=== PATIENT | male | born 1985 | race Caucasian/White ===

== ENCOUNTER 2020-05-01 12:49 | Emergency (ER) | payer SELFPAY ==
[2020-05-01 12:56] VITALS: BP 160/90
--- NOTE | 2020-05-01 13:27 | ED Physician Documentation ---
History of Present Illness - Stated complaint Stated Complaint: MOUTH PX - Chief complaint Chief Complaint: Heent - History obtained from History obtained from: Patient - Additonal information Additional information: 34-year-old male presents to the emergency department for 1 week of dental pain. He is grossly abnormal dentition on his upper mouth. Stated that the pain began about 1 week ago and has gotten progressively worse. Not alleviated with Tylenol or ibuprofen. He did have facial swelling for 2 days but that has since resolved. No fevers. No trismus. Normal phonation and able to swallow normally. He is trying to get into a dentist. 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 He is hoping for a bridging prescription of antibiotics until he can be seen by dental. Review of Systems Constitutional: denies: Fever, Chills Eyes: reports: Reviewed and negative Ears: reports: Reviewed and negative Nose: reports: Reviewed and negative Throat: reports: Dental pain / toothache, Oral lesions / sores. denies: Sore throat, Swollen tonsils, Swallowed foreign body Cardiac: reports: Reviewed and negative Respiratory: reports: Reviewed and negative GI: reports: Reviewed and negative : reports: Reviewed and negative PD PAST MEDICAL HISTORY - Past Medical History Past Medical History: No - Past Surgical History Past Surgical History: No - Present Medications Home Medications: Ambulatory Orders Medication Instructions Recorded Confirmed Amox/Clav 875/125 [Augmentin] 1 each PO Q12H #20 tablet 05/01/20 - Allergies Allergies/Adverse Reactions: Allergies Allergy/AdvReac Type Severity Reaction Status Date / Time No Known Drug Allergies Allergy Verified 05/01/20 12:52 - Social History Does the pt smoke?: Yes Smoking Status: Current every day smoker Does the pt drink ETOH?: Yes Substance Use and Type: Marijuana PD ED PE EXPANDED - General General: Alert, No acute distress, Well developed/nourished - HEENT HEENT: PERRL, EOMI, Pharynx normal, Dental decay (Grossly abnormal teeth in the upper mouth. All are missing and rotted to the gumline. Generalized gumline swelling without fluctuance or obvious drainage. No trismus. Normal swallow and phonation.). No: Pharyngeal erythema, Swollen tonsils, Tonsillar exudate Results - Vitals Vitals: Vital Signs - 24 hr 05/01/20 12:53 Temperature 36.5 C Heart Rate 52 L Respiratory 14 Rate Blood Pressure 160/90 H O2 Saturation 100 Oxygen O2 Source Room air PD MEDICAL DECISION MAKING - ED course Complexity details: re-evaluated patient, considered differential, d/w patient ED course: 34-year-old male here for dental pain. He has a very poor dentition in the upper mouth with all of the teeth missing are rotted to the gumline. He has generalized gumline erythema but no obvious fluctuance or drainage. No trismus. He has normal phonation. He is attempting to get into a dentist for long-term repair and evaluation of his mouth. I will start him on a course of Augmentin. He is attempting to see [facility] clinics in [place] but I also gave him [facility] as they do have dental walk-in clinic availability. Emergent return precautions discussed for fevers, facial swelling trismus dysphonia inability to tolerate oral secretions Departure - Departure Disposition: 01 Home, Self Care Clinical Impression: Dental decay, Dentalgia Condition: Stable Record reviewed to determine appropriate education?: Yes Instructions: ED [facility] Prescriptions: Amox/Clav 875/125 [Augmentin] 1 each PO Q12H #20 tablet Comments: Reji I am prescribing you a 10-day course of Augmentin for your dental decay. In the long-term this will be a recurring problem until you are able to be seen by a dentist and have the teeth properly removed and or repaired. I would like you to gargle with warm salt water 3 times a day. This will help alleviate inflammation and infection. Fill the prescription for the antibiotics and begin taking as directed. If at any point you develop fevers, have facial swelling, cannot open your jaw fully, cannot swallow normally or have a hoarse voice please return to the ER for a second look [facility] dental clinics in [place] may be able to see you. However [facility] does have dental clinics that do have walk-in availability. I recommend that you try and see them as well
[2020-05-01] MEDS ORDERED: AMOX/CLAV 875 MG/125 MG TABLET PO STA (13:30)
== END 2020-05-01 13:40 | disposition home or self-care (01) ==
LOC: ED 12:49
DX: K02.9 Dental caries, unspecified (principal); K08.89 Other specified disorders of teeth and supporting structures; F17.200 Nicotine dependence, unspecified, uncomplicated
CPT/HCPCS: 99282; 99283; A9270

== ENCOUNTER 2022-03-20 13:14 | Emergency (ER) | payer MEDICAID ==
[2022-03-20] MEDS ORDERED: ONDANSETRON 4 MG/2 ML VIAL IVP STA (13:31)
[2022-03-20] MEDS ORDERED: HYDROmorphone 1 MG/ML CARPUJECT IVP STA ×2 (13:31→15:10)
--- NOTE | 2022-03-20 13:33 | ED Physician Documentation ---
History of Present Illness - Stated complaint Stated Complaint: FALL,ELBOW INJ - Chief complaint Chief Complaint: Trauma Ext - History obtained from History obtained from: Patient - History of Present Illness Timing: Today Pain level max: 10 Pain level now: 10 - Additonal information Additional information: Patient is a 36-year-old male who presents to the emergency department after falling out of a tree today. He landed on the left elbow causing left elbow pain. He is unsure if he struck his head. States most of his pain is in his left elbow. Worse with movement, nothing makes it better. Patient denies any numbness. Has mild tingling of the left hand. The pain in the elbow is worse with movement, better with rest. Patient is right-handed no loss of consciousness. No vomiting. Does not take any blood thinners. Patient was activated as a modified trauma. Review of Systems Ten Systems: 10 systems reviewed and negative Constitutional: denies: Fever, Chills Ears: denies: Ear pain Nose: denies: Rhinorrhea / runny nose, Congestion Respiratory: denies: Dyspnea, Cough GI: denies: Nausea, Vomiting, Diarrhea Skin: denies: Rash Musculoskeletal: denies: Back pain Neurologic: denies: Focal weakness, Numbness, Head injury PD PAST MEDICAL HISTORY - Past Medical History Past Medical History: No - Past Surgical History Past Surgical History: No - Present Medications Home Medications: Ambulatory Orders Medication Instructions Recorded Confirmed Amox/Clav 875/125 [Augmentin] 1 each PO Q12H #20 tablet 05/01/20 Oxycodone HCl/Acetaminophen 1 - 2 each PO Q6H PRN #20 tablet 03/20/22 [Percocet 5-325 mg Tablet] MDD 6 tabs - Allergies Allergies/Adverse Reactions: Allergies Allergy/AdvReac Type Severity Reaction Status Date / Time No Known Drug Allergies Allergy Verified 03/20/22 13:26 - Social History Does the pt smoke?: Yes Smoking Status: Current every day smoker Does the pt drink ETOH?: Yes - Family History Family history: reports: Non contributory PD ED PE NORMAL - Vitals Vital signs reviewed: Yes - General General: Alert and oriented X 3, No acute distress, Well developed/nourished - HEENT HEENT: Atraumatic, PERRL, EOMI, Ears normal, Moist mucous membranes - Neck Neck: No bony TTP, Other (Placed in a c-collar upon arrival) - Cardiac Cardiac: RRR, Strong equal pulses - Respiratory Respiratory: No respiratory distress, Clear bilaterally - Abdomen Abdomen: Soft, Non tender, Non distended - Derm Derm: Warm and dry - Extremities Extremities: Other (Deformity noted to the left elbow. Limited range of motion secondary to pain. No tenderness over the wrist, forearm, humerus or glenohumeral joint. Neurovascular intact.) - Neuro Neuro: Alert and oriented X 3, iso coordinator 2-12 intact, No motor deficit, No sensory deficit, Normal speech Eye Opening: Spontaneous Motor: Obeys Commands Verbal: Oriented GCS Score: 15 - Psych Psych: Normal mood, Normal affect Results - Vitals Vitals: Vital Signs - 24 hr 03/20/22 03/20/22 03/20/22 13:23 14:33 15:41 Temperature 36.5 C Heart Rate 65 88 80 Respiratory 20 14 15 Rate Blood Pressure 151/106 H 160/78 H O2 Saturation 100 100 03/20/22 03/20/22 15:45 16:02 Temperature Heart Rate 87 69 Respiratory 18 18 Rate Blood Pressure 180/104 H 167/109 H O2 Saturation 100 98 Oxygen O2 Source Room air - Labs Labs: Laboratory Tests 03/20/22 03/20/22 13:30 13:30 WBC 9.4 RBC 5.17 Hgb 15.3 Hct 46.3 MCV 89.6 MCH 29.6 MCHC 33.0 RDW 12.9 Plt Count 244 MPV 10.2 Neut # (Auto) 5.5 Lymph # (Auto) 2.4 [place] # (Auto) 0.9 Eos # (Auto) 0.4 Baso # (Auto) 0.0 Absolute Nucleated RBC 0.00 Nucleated RBC % 0.0 Sodium 139 Potassium 4.5 Chloride 103 Carbon Dioxide 25 Anion Gap 11.0 BUN 12 Creatinine 1.2 Estimated GFR (MDRD) 68 L Glucose 177 H Calcium 9.7 Total Bilirubin 0.5 AST 45 H ALT 42 Alkaline Phosphatase 88 Total Protein 7.8 Albumin 4.3 Globulin 3.5 Albumin/Globulin Ratio 1.2 - Rads (name of study) L elbow xray Radiology: Final report received, EMP read contemporaneously, See rad report (Significant elbow dislocation. No definite displaced fracture) head CT Radiology: Final report received, EMP read contemporaneously, See rad report (No acute abnormality) cervical spine CT Radiology: Final report received, EMP read contemporaneously, See rad report (No acute abnormality) L elbow post reduction Radiology: Final report received, EMP read contemporaneously, See rad report (Improved elbow alignment, still slight lateral subluxation of the radiocapitellar compartment. 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 About 20 feet off a ladder. Has a left elbow dislocation. This was reduced. Placed in a posterior splint. Placed in a sling as well. Pain well controlled. No acute findings on head CT or cervical spine CT. No other apparent injuries. Patient is using his right arm without any difficulty. Ambulating without any difficulty. No back pain on palpation. We will have him follow-up with orthopedics for further care. Patient counseled regarding signs and symptoms for which I believe and urgent re-evaluation would be necessary. Patient with good understanding of and agreement to plan and is comfortable going home at this time This document was made in part using voice recognition software. While efforts are made to proofread this document, sound alike and grammatical errors may occur. IMPRESSION: Significant elbow dislocation. No definite displaced fracture is identified. If it would be helpful for clinical management decision making, please consider a dedicated elbow CT for further evaluation. Departure - Departure Disposition: 01 Home, Self Care Clinical Impression: Elbow dislocation Qualifiers: Encounter type: initial encounter Laterality: left Qualified Code(s): S53.105A - Unspecified dislocation of left ulnohumeral joint, initial encounter Condition: Good Instructions: ED Dislocated Elbow Follow-Up: [facility] [Provider Group] - Within 1 week Prescriptions: Oxycodone HCl/Acetaminophen [Percocet 5-325 mg Tablet] 1 - 2 each PO Q6H PRN #20 tablet MDD 6 tabs PRN Reason: pain Comments: Please follow-up with orthopedics for further care. Stay in the splint until released by orthopedics. Your prescriptions were sent to [facility] in [place]. You should be seen by orthopedics within the next week. Please call on Tuesday morning for an appointment next week. Return if you worsen. I am prescribing a short course of narcotic pain medication for you. These are potentially dangerous and addictive medications that should be used carefully. These medications may constipate you. Take an mhuz-rkg-treutep stool softener (docusate) twice daily with plenty of water while taking these medications. If you go 24 hours without a bowel movement, take enmu-emq-dvognob miralax, per package instructions. Do not drink or drive while taking these medications. If you received narcotic or sedating medications while in the emergency department, do not drive for 24 hours. Store this medication in a safe, secure place and out of reach of children. It is a violation of federal law to give or sell this medication to another person or to use in a manner other than prescribed. The ED will not refill narcotic prescriptions, including prescriptions lost or stolen. To dispose of unwanted medications: 1. [facility] [address] in [place] has a medication drop box. They accept prescription medications (in pill form) Tuesday through Tuesday 9:00 a.m. to 5:00 p.m. 2. The [facility] [employer] accepts prescription medications (in pill form only) for disposal year round. Call for more information. 3. Contact the [facility] for the next [facility] sponsored prescription drug collection event. , [phone], or [phone]; Discharge Date/Time: 03/20/22 16:03
[2022-03-20 13:40] LABS: BASOPHILS % (AUTO) 0.3 %; EOSINOPHILS # (AUTO) 0.4 10^3/uL (0.0-0.7); EOSINOPHILS % (AUTO) 4.5 %; HCT - HEMATOCRIT 46.3 % (42.0-52.0); HGB - HEMOGLOBIN 15.3 g/dL (14.0-18.0); LYMPHOCYTES # (AUTO) 2.4 10^3/uL (1.5-3.5); MEAN CORPUSCULAR HEMOGLOBIN 29.6 pg (27.0-31.0); MEAN CORPUSCULAR VOLUME 89.6 fL (80.0-94.0); MEAN PLATELET VOLUME 10.2 fL (7.4-11.4); MONOCYTES # (AUTO) 0.9 10^3/uL (0.0-1.0); MONOCYTES % (AUTO) 9.6 %; NEUTROPHILS # (AUTO) 5.5 10^3/uL (1.5-6.6); NEUTROPHILS % (AUTO) 59.2 %; PLT - PLATELET COUNT 244 10^3/uL (130-450); RED BLOOD COUNT 5.17 10^6/uL (4.70-6.10); RED CELL DISTRIBUTION WIDTH 12.9 % (12.0-15.0); WHITE BLOOD COUNT 9.4 x10^3/uL (4.8-10.8)
[2022-03-20] MEDS ORDERED: PROPOFOL 200 MG/20 ML VIAL IVP STA ×2 (13:49→14:05)
[2022-03-20 13:59] LABS: ALBUMIN 4.3 g/dL (3.2-5.5); ALBUMIN/GLOBULIN RATIO 1.2 (1.0-2.2); BILIRUBIN,TOTAL 0.5 mg/dL (0.2-1.0); CALCIUM 9.7 mg/dL (8.5-10.3); CREATININE 1.2 mg/dL (0.6-1.2); POTASSIUM 4.5 mmol/L (3.5-5.0); TOTAL PROTEIN 7.8 g/dL (6.7-8.2)
--- NOTE | 2022-03-20 14:00 | XRAY Report ---
PROCEDURE: Elbow 2 View LT INDICATIONS: fall, L elbow pain TECHNIQUE: 2 views of the elbow were acquired. COMPARISON: None FINDINGS: Bones: Elbow dislocation is seen, with the proximal olecranon and radial head dislocated posteriorly in relation to the distal humerus. No definite displaced fracture can be seen on these plain films. Soft tissues: Soft tissue swelling is seen. IMPRESSION: Significant elbow dislocation. No definite displaced fracture is identified. If it would be helpful for clinical management decision making, please consider a dedicated elbow CT for further evaluation. Reviewed by: Fracisco Nunez MD on 03/20/2022 12:59 PM [facility] Approved by: Fracisco Nunez MD on 03/20/2022 12:59 PM [facility] Station ID: [id number]
--- NOTE | 2022-03-20 14:37 | CT Report ---
PROCEDURE: HEAD WO INDICATIONS: fall, head pain TECHNIQUE: Noncontrast 4.5 mm thick angled axial sections acquired from the foramen magnum to the vertex. For r adiation dose reduction, the following was used: automated exposure control, adjustment of mA and/or kV according to patient size. COMPARISON: None. FINDINGS: Image quality: Motion degraded CSF spaces: Basal cisterns are patent. Lateral ventricles are symmetric. Volume: Generally maintained Brain: No intracranial hemorrhage. Velasquez-white differentiation is grossly maintained. Craniofacial structures: No displaced fracture. Sinuses are clear. Orbits are intact. IMPRESSION: No acute intracranial abnormality. Reviewed by: Keegan Guzmán MD on 03/20/2022 2:35 PM PST Approved by: Keegan Guzmán MD on 03/20/2022 2:35 PM PST Station ID: [id number]
--- NOTE | 2022-03-20 14:39 | CT Report ---
PROCEDURE: CERVICAL SPINE WO INDICATIONS: fall 20 feet, neck pain TECHNIQUE: Noncontrast 3 mm thick sections acquired from the skull base to the T4 level. Sagittal and coronal r eformats were then constructed. For radiation dose reduction, the following was used: automated exp osure control, adjustment of mA and/or kV according to patient size. COMPARISON: None. FINDINGS: Image quality: Excellent Bones: Minimal spondylosis. No acute fracture or traumatic subluxation. Soft tissues: No apical pneumothorax or prevertebral soft tissue swelling. IMPRESSION: No acute fracture or traumatic subluxation of the cervical spine. Reviewed by: Keegan Guzmán MD on 03/20/2022 2:37 PM PST Approved by: Keegan Guzmán MD on 03/20/2022 2:37 PM PST Station ID: [id number]
--- NOTE | 2022-03-20 14:41 | XRAY Report ---
PROCEDURE: Elbow 2 View LT INDICATIONS: post reduction TECHNIQUE: 2 views of the elbow were acquired. COMPARISON: Same-day radiograph FINDINGS: Bones: Improved elbow alignment. On frontal view, radiocapitellar alignment is still subluxed. Soft tissues: No suspicious calcifications or large effusion. IMPRESSION: Improved elbow alignment. There is still slight lateral subluxation of the radiocapitellar compartme nt. If appropriate, consider CT to evaluate for any nondisplaced fracture or entrapped fragments if n ecessary. Reviewed by: Keegan Guzmán MD on 03/20/2022 2:39 PM PST Approved by: Keegan Guzmán MD on 03/20/2022 2:39 PM PST Station ID: [id number]
[2022-03-20] MEDS ORDERED: oxyCODONE 5 MG TABLET PO STA (15:10)
[2022-03-20 16:03] VITALS: BP 167/109
== END 2022-03-20 16:03 | disposition home or self-care (01) ==
LOC: ED 13:14
DX: S53.105A Unspecified dislocation of left ulnohumeral joint, initial encounter (principal); W11.XXXA Fall on and from ladder, initial encounter; F17.200 Nicotine dependence, unspecified, uncomplicated
CPT/HCPCS: 24600; 36415; 70450; 72125; 73070; 80053; 85025; 96374; 96375; 99152; 99282; 99285; A9270; J1170; 94770

== ENCOUNTER 2022-03-25 10:15 | Outpatient (CLI) | payer MEDICAID ==
--- NOTE | 2022-03-25 17:46 | XRAY Report ---
PROCEDURE: Elbow 3 View LT INDICATIONS: LEFT ELBOW DISLOCATION TECHNIQUE: 5 views of the elbow were acquired. COMPARISON: 03/20/2022 FINDINGS: Bones: No fractures or dislocations is seen on the current study. Elbow alignment is anatomic. No s uspicious bony lesions. Soft tissues: No significant elbow joint effusion. No suspicious soft tissue calcifications. IMPRESSION: Anatomic elbow alignment. No gross acute elbow fracture is seen. No significant joint effusion. Reviewed by: Edward Ford MD on 03/25/2022 5:44 PM PST Approved by: Edward Ford MD on 03/25/2022 5:44 PM PST Station ID: [id number]
== END 2022-03-25 23:59 | disposition home or self-care (01) ==
LOC: DI.WOS 10:15
PROVIDERS: ATTEND Orthopaedic Surgery
DX: M25.522 Pain in left elbow (principal)

== ENCOUNTER 2022-05-06 16:36 | Outpatient (CLI) | payer MEDICAID ==
--- NOTE | 2022-05-06 16:36 | XRAY Report ---
PROCEDURE: Elbow 3 View LT INDICATIONS: LEFT ELBOW PAIN/DISLOCATION TECHNIQUE: 3 views of the elbow were acquired. COMPARISON: X-ray elbow 03/25/2022, x-ray forearm 05/06/2022 FINDINGS: Bones: No fractures or dislocations. No suspicious bony lesions. Soft tissues: No elbow joint effusion. No suspicious soft tissue calcifications. IMPRESSION: No visualized fracture. If concern persists, CT or MRI is recommended for further evaluation. Reviewed by: Lady Falcon MD on 05/06/2022 4:35 PM PST Approved by: Lady Falcon MD on 05/06/2022 4:35 PM PST Station ID: [id number]
--- NOTE | 2022-05-06 16:37 | XRAY Report ---
PROCEDURE: Forearm LT INDICATIONS: LEFT ULNA PAIN SINCE DISLOCATION TECHNIQUE: 2 views of the forearm were acquired. COMPARISON: X-ray elbow 05/06/2022 FINDINGS: Bones: No fractures or dislocations. No suspicious bony lesions. Soft tissues: No suspicious soft tissue calcifications or masses. IMPRESSION: No visualized fracture. If concern persists, CT or MRI is recommended. Reviewed by: Lady Falcon MD on 05/06/2022 4:35 PM PST Approved by: Lady Falcon MD on 05/06/2022 4:35 PM PST Station ID: [id number]
== END 2022-05-06 16:37 | disposition home or self-care (01) ==
LOC: DI.WOS 16:36
PROVIDERS: ATTEND Physician Assistant Surgical
DX: S53.125A Posterior dislocation of left ulnohumeral joint, initial encounter (principal)

== ENCOUNTER 2023-05-24 18:29 | Outpatient (CLI) | payer MEDICAID, OTHER | END 2023-05-24 23:59 | disposition short-term general hospital (02) | LOC: EMS 18:29 | DX: S01.81XA Laceration without foreign body of other part of head, initial encounter (principal); R42 Dizziness and giddiness; Y08.02XA Assault by strike by baseball bat, initial encounter; Y92.414 Local residential or business street as the place of occurrence of the external cause | CPT/HCPCS: A0425; A0429; A0999 ==